=== PATIENT | male | born 1995 | race Two or more races ===

== ENCOUNTER 2018-03-19 09:23 | Emergency (ER) | payer OTHER ==
[~2018-03-19] VITALS: Ht 167.6 cm; Wt 77.3 kg
[2018-03-19 10:31] VITALS: BP 130/61
== END 2018-03-19 10:41 | disposition home or self-care (01) ==
LOC: M ED 09:23
DX: T33.822A Superficial frostbite of left foot, initial encounter (principal); T33.821A Superficial frostbite of right foot, initial encounter; X31.XXXA Exposure to excessive natural cold, initial encounter

== ENCOUNTER → 2018-04-13 | Outpatient (CLI) | payer OTHER | LOC: M OUTALCOH 07:53 | PROVIDERS: ATTEND Psychiatry & Neurology Psychiatry | DX: Z03.89 Encounter for observation for other suspected diseases and conditions ruled out (principal) ==

== ENCOUNTER 2018-05-01 16:00 | Outpatient (RCR) | payer OTHER | END 2018-05-03 | LOC: M OUTALCOH 16:00 | PROVIDERS: ATTEND Psychiatry & Neurology Psychiatry | DX: F10.10 Alcohol abuse, uncomplicated (principal) ==

== ENCOUNTER 2018-05-30 07:56 | Outpatient (RCR) | payer OTHER | END 2018-06-03 | LOC: M OUTALCOH 07:56 | PROVIDERS: ATTEND Psychiatry & Neurology Psychiatry | DX: F10.10 Alcohol abuse, uncomplicated (principal) ==

== ENCOUNTER 2018-06-21 11:40 | Emergency (ER) | payer OTHER ==
[~2018-06-21] VITALS: Ht 172.7 cm; Wt 81.8 kg
[2018-06-21 14:10] LABS: MONO SCRN NEGATIVE (NEGATIVE)
[2018-06-21 14:13] LABS: HEMOGLOBIN 16.1 g/dl (13.5-17.5); MEAN CORPUSCULAR HGB CONC 34.3 g/dl (32.0-36.5); MEAN CORPUSCULAR VOLUME 81.7 fl (80.0-96.0); PLATELET COUNT, AUTOMATED 186 10^3/uL (150-450); RED BLOOD COUNT 5.75 10^6/uL (4.30-6.10); WHITE BLOOD COUNT 6.5 10^3/uL (4.0-10.0)
[2018-06-21 14:21] LABS: BLOOD UREA NITROGEN 10 MG/DL (7-18); CALCIUM LEVEL 8.4 MG/DL (8.5-10.1); CARBON DIOXIDE LEVEL 25 MEQ/L (21-32); CHLORIDE LEVEL 105 MEQ/L (98-107); CREATININE FOR GFR 0.88 MG/DL (0.70-1.30); GLOMERULAR FILTRATION RATE > 60.0 (>60); GLUCOSE, FASTING 80 MG/DL (70-100); SODIUM LEVEL 138 MEQ/L (136-145)
[2018-06-21] MEDS ORDERED: AUGM875T28 PO ×2 (14:37→14:43)
[2018-06-21] MEDS ORDERED: PRED20TA PO (14:38)
[2018-06-21] MEDS ORDERED: dexameTHASONE 20 MG/5 ML VIAL (J1100) IV ONE (14:45)
[2018-06-21] MEDS ORDERED: AMPICILLIN SOD/SULBACTAM SOD 3 GM in D5W MINI-BAG PLUS 100 ML IV ONE (15:00)
[2018-06-21 15:59] VITALS: BP 129/68
== END 2018-06-21 16:02 | disposition home or self-care (01) ==
LOC: M ED 11:40
DX: R59.1 Generalized enlarged lymph nodes (principal)
CPT/HCPCS: 80048; 85027; 86308; 86735; 87880; 96365; 96375; 99284; J1100

== ENCOUNTER → 2018-07-03 | Outpatient (RCR) | payer OTHER ==
[~2018-07-03] MED LIST: AUGM875T28 PO; PRED20TA PO
== END ==
LOC: M OUTALCOH 06-05 16:00
PROVIDERS: ATTEND Psychiatry & Neurology Psychiatry
DX: F10.10 Alcohol abuse, uncomplicated (principal)

== ENCOUNTER 2018-07-24 10:04 | Emergency (ER) | payer OTHER ==
[~2018-07-24] VITALS: Ht 175.3 cm; Wt 85.0 kg
[2018-07-24 10:05] VITALS: BP 141/65
[2018-07-24 13:23] LABS: CHLAMYDIA DNA AMPLIFICATION NEGATIVE (NEGATIVE); GC DNA AMPLIFICATION NEGATIVE (NEGATIVE)
== END 2018-07-24 11:23 | disposition home or self-care (01) ==
LOC: M ED 10:04
DX: Z11.3 Encounter for screening for infections with a predominantly sexual mode of transmission (principal); Z72.51 High risk heterosexual behavior

== ENCOUNTER 2018-08-02 08:00 | Outpatient (RCR) | payer OTHER | END 2018-08-03 | LOC: M OUTALCOH 08:00 | PROVIDERS: ATTEND Psychiatry & Neurology Psychiatry | DX: F10.10 Alcohol abuse, uncomplicated (principal) ==

== ENCOUNTER 2018-08-09 08:23 | Outpatient (RCR) | payer OTHER ==
[2018-08-09] MEDS ORDERED: ACET-841 PO (22:00)
== END 2018-09-02 ==
LOC: M OUTALCOH 08:23
PROVIDERS: ATTEND Psychiatry & Neurology Psychiatry
DX: F10.10 Alcohol abuse, uncomplicated (principal)

== ENCOUNTER 2018-08-09 21:51 | Emergency (ER) | payer OTHER ==
[~2018-08-09] VITALS: Ht 175.3 cm; Wt 81.8 kg
[2018-08-09] MEDS ORDERED: ACET-841 PO (22:00)
[2018-08-10 01:50] VITALS: BP 144/85
== END 2018-08-10 05:24 | disposition left against medical advice (07) ==
LOC: M ED 21:51
DX: K08.89 Other specified disorders of teeth and supporting structures (principal); Z53.21 Procedure and treatment not carried out due to patient leaving prior to being seen by health care provider

== ENCOUNTER 2018-11-26 07:25 | Emergency (ER) | payer OTHER ==
[~2018-11-26] VITALS: Ht 167.6 cm; Wt 83.3 kg
[~2018-11-26 07:25] MED LIST changes: +ACET-841 PO
[2018-11-26] MEDS ORDERED: NS 1,000 ML IV ONE (08:15)
[2018-11-26 09:01] LABS: HEMATOCRIT 46.5 % (42.0-52.0); HEMOGLOBIN 16.1 g/dl (13.5-17.5); MEAN CORPUSCULAR HEMOGLOBIN 28.6 pg (27.0-33.0); MEAN CORPUSCULAR HGB CONC 34.6 g/dl (32.0-36.5); MEAN CORPUSCULAR VOLUME 82.6 fl (80.0-96.0); PLATELET COUNT, AUTOMATED 214 10^3/uL (150-450); RED BLOOD COUNT 5.63 10^6/uL (4.30-6.10); WHITE BLOOD COUNT 7.1 10^3/uL (4.0-10.0)
[2018-11-26 09:29] LABS: INFLUENZA A AMPLIFICATION NEGATIVE (NEGATIVE); INFLUENZA B AMPLIFICATION NEGATIVE (NEGATIVE)
[2018-11-26 09:30] LABS: BILIRUBIN,DIRECT 0.2 MG/DL (0.0-0.2); ETHYL ALCOHOL (ETHANOL) 0.076 % (0.000-0.010); TOTAL PROTEIN 7.3 GM/DL (6.4-8.2)
[2018-11-26 10:41] LABS: AMPHETAMINES LEVEL URINE NEGATIVE (NEGATIVE); BARBITURATES URINE NEGATIVE (NEGATIVE); BENZODIAZEPINES URINE NEGATIVE (NEGATIVE); CANNABINOIDS URINE NEGATIVE (NEGATIVE); COCAINE METABOLITE URINE NEGATIVE (NEGATIVE); METHADONE URINE NEGATIVE (NEGATIVE); OPIATES URINE NEGATIVE (NEGATIVE); PHENCYCLIDINE URINE NEGATIVE (NEGATIVE)
[2018-11-26 10:45] VITALS: BP 131/64
== END 2018-11-26 10:56 | disposition home or self-care (01) ==
LOC: M ED 07:25
DX: K62.5 Hemorrhage of anus and rectum (principal); R42 Dizziness and giddiness; M54.2 Cervicalgia; F10.929 Alcohol use, unspecified with intoxication, unspecified
CPT/HCPCS: 80047; 80076; 80307; 83690; 85027; 87631; 96360; 96361; 99284; G0480

== ENCOUNTER 2019-02-19 23:09 | Emergency (ER) | payer OTHER ==
[~2019-02-19] VITALS: Ht 172.7 cm; Wt 65.9 kg
[2019-02-19] MEDS ORDERED: BENZONATATE 100 MG CAP PO ONE (23:30)
[2019-02-19] MEDS ORDERED: ACETAMINOPHEN 325 MG TAB PO ONE (23:30)
[2019-02-20] MEDS ORDERED: BENZ200C70 PO (00:03)
[2019-02-20] MEDS ORDERED: IBUP-1022 PO (00:03)
[2019-02-20 00:15] LABS: INFLUENZA A AMPLIFICATION NEGATIVE (NEGATIVE); INFLUENZA B AMPLIFICATION NEGATIVE (NEGATIVE)
[2019-02-20 00:24] VITALS: BP 112/72
--- NOTE | 2019-02-20 08:16 | REP ---
Chest x-ray: Two views. History: cough, fevers. . Comparison study: No comparison study . Findings: The lungs are well inflated and free of infiltrate. The pleural angles are sharp. The heart size is normal. Pulmonary vasculature is not increased. No significant bony abnormality is seen. Impression: Negative chest x-ray. Electronically Signed by Joe Rome MD 02/20/2019 08:07 A
== END 2019-02-20 00:25 | disposition home or self-care (01) ==
LOC: M ED 23:09
DX: J06.9 Acute upper respiratory infection, unspecified (principal); R50.9 Fever, unspecified; R05 Cough

== ENCOUNTER → 2019-07-25 | Outpatient (CLI) | payer OTHER ==
[~2019-07-25] MED LIST changes: +BENZ200C70 PO; +IBUP-1022 PO
--- NOTE | 2019-07-25 23:08 | REP ---
REASON: Trauma. There is a comminuted tuft fracture involving the 4th digit. Electronically Signed by Pepe Marquez DO 07/26/2019 08:28 A
== END ==
LOC: M RAD 19:04
PROVIDERS: ATTEND Physician Assistant
DX: S62.600A Fracture of unspecified phalanx of right index finger, initial encounter for closed fracture (principal); X58.XXXA Exposure to other specified factors, initial encounter; Y92.9 Unspecified place or not applicable

== ENCOUNTER → 2021-07-07 | Outpatient (CLI) | payer OTHER | LOC: M PLAIMG 10:28 | PROVIDERS: ATTEND Physician Assistant | DX: S62.314A Displaced fracture of base of fourth metacarpal bone, right hand, initial encounter for closed fracture (principal); S62.316A Displaced fracture of base of fifth metacarpal bone, right hand, initial encounter for closed fracture; S62.312A Displaced fracture of base of third metacarpal bone, right hand, initial encounter for closed fracture; X58.XXXA Exposure to other specified factors, initial encounter; Y92.9 Unspecified place or not applicable; Y99.9 Unspecified external cause status; Y93.9 Activity, unspecified ==